=== PATIENT | female | born 2000 | race Caucasian/White ===

== ENCOUNTER 2020-08-10 01:45 | Emergency (ER) | payer OTHER, MEDICAID, SELFPAY ==
[2020-08-10 01:50] VITALS: BP 134/84; PULSE 110; RESP 18; TEMP 36.2; O2SAT 99; BMI 16.2
--- NOTE | 2020-08-10 02:36 | ED.PSYCH ---
HPI - Psych General Chief Complaint: Psychiatric Symptoms Stated Complaint: Thinks she was injected with meth Time Seen by Provider: 08/10/20 01:50 Source: patient and EMS Mode of arrival: Ambulatory Limitations: no limitations History of Present Illness HPI Narrative: 20F smoker presents by EMS stating that she thinks she may have just been injected by methamphetamines at home. She doesn't know where or why, but she wanted to be checked. She is not dizzy, weak, or lightheaded. She had a brief episode of chest pain at some point, but that's gone now. She denies suicidal or homicidal ideation. She is able to care for herself stating she bathes, and cooks. She lives with her mother and boyfriend. complaint: other Onset (ago): minute(s) Duration: constant Exacerbating factors: none Associated psychiatric symptoms: other (paranoid) Associated symptoms: denies other symptoms Treatments prior to arrival: none Review of Systems Constitutional Constitutional: Denies chills, Denies fatigue, Denies fever(s), Denies frequent falls, Denies lethargy and Denies weakness Eyes Eyes: Denies change in vision, Denies eye discharge, Denies irritation and Denies loss of vision ENT Ears, Nose, Mouth, and Throat: Denies change in voice, Denies dizziness, Denies neck pain, Denies sore throat and Denies throat swelling Cardiovascular Cardiovascular: Reports chest pain, Denies irregular heart rhythm, Denies lightheadedness, Denies palpitations, Denies dyspnea, Denies dyspnea on exertion and Denies orthopnea Respiratory Respiratory: Denies cough, Denies dyspnea, Denies dyspnea on exertion and Denies wheezing Gastrointestinal Gastrointestinal: Denies abdominal pain, Denies change in bowel habits, Denies diarrhea, Denies nausea and Denies vomiting Musculoskeletal Musculoskeletal: Denies neck pain and Denies numbness Integumentary/Breasts Skin/Breast: Denies pruritus, Denies erythema, Denies rash and Denies wounds Neurologic Neurologic: Denies behavioral changes, Denies confusion, Denies dizziness, Denies frequent falls, Denies loss of vision, Denies numbness and Denies weakness Psychiatric Psychiatric: Denies anxiety, Denies behavioral changes, Denies confusion, Denies depression, Reports paranoia, Denies homicidal ideation and Denies suicidal ideation Endocrine Endocrine: Denies fatigue, Denies flushing and Denies palpitations Hematologic/Lymphatic Hematologic/Lymphatic: Denies easy bruising Allergic/Immunologic Allergic/Immunologic: Denies urticaria, Denies throat swelling and Denies wheezing Patient History Social History Smoking Status: Current every day smoker Smoking Status: Current every day smoker tobacco type: vaping Substance Use Type: marijuana Exam Narrative Exam Narrative: GENERAL: [20] year old patient appears stated age. Thin, but no temporal wasting or suggestion of malnutrition. Speaking clearly without slurring. HEAD: Atraumatic. Normocephalic. EYES: Pupils equal round and reactive. Extraocular motions intact. No scleral icterus. No injection or drainage. ENT: Nose without bleeding, purulent drainage. Throat without erythema, tonsillar hypertrophy or exudate. Airway patent. NECK: Trachea midline. Non tender CARDIOVASCULAR: Regular rate and rhythm without murmurs, gallops, or rubs. RESPIRATORY: Clear to auscultation. Breath sounds equal bilaterally. No wheezes, rales, or rhonchi. GASTROINTESTINAL: Abdomen soft, non-tender, nondistended. EXTREMITIES: No edema or joint tenderness. BACK: Nontender without deformity or crepitance. No flank tenderness. NEURO: AOx3. SKIN: No rash or erythema of visible areas Initial Vital Signs Initial Vital Signs: Vital Signs Temperature 97.2 F L 08/10/20 01:50 Pulse Rate 110 H 08/10/20 01:50 Respiratory Rate 18 08/10/20 01:50 Blood Pressure 134/84 08/10/20 01:50 Pulse Oximetry 99 08/10/20 01:50 Course Course Course Narrative: patient wanted to walk through the department and when she was encouraged to stay in her room she felt that was unfair and wanted to leave. She refused IV or labs. She is paranoid but speaks clearly without slurring and walks a straight line. She does not demonstrated and risk to herself or others and wants to go home. She refused to sign an AMA. She understands that she may come back at any time. Vital Signs Vital signs: Vital Signs - 8 hr 08/10/20 01:50 Temperature 97.2 F L Pulse Rate 110 H Respiratory Rate 18 Blood Pressure 134/84 Pulse Oximetry 99 Discharge Plan Departure Patient Disposition: Left Against Medical Advice Clinical Impression: Paranoid delusion Activity Restrictions/Additional Instructions: *You have been diagnosed with [ paraoid delusion, perhaps due to elicit drug use. We were unable to evaluate you tonight. Please return at any point if you change your mind and wish to be evaluated ] *What to do: *Take medications as directed *Follow up with your primary care provider in 2-3 days, call for an appointment. Let them know you were seen in the Emergency Department and that we ask that you be seen in follow up *Return to ER if you should have any new, worsening or concerning symptoms Referrals: [facility] [Outside] [facility] [Outside] [facility] [Outside] Stand Alone Forms: Against Medical Advice
--- NOTE | 2020-08-10 02:44 | PC.NURSE ---
Registration in room to obtain consent to treat, patient refused to sign. Patient was very anxious pacing around in room coming out into the hallway when instructed to return/stay in room. She decided to leave AMA and proceeded to walk out of the ambulance bay doors without signing AMA paperwork either. She had her cellphone in hand but left her Vape pen here that we tried to give back to her while outside and she said she did not care about retrieving it.
== END 2020-08-10 02:30 | disposition left against medical advice (07) ==
PROVIDERS: Emergency Provider Emergency Medicine
DX: F22 Delusional disorders (principal)
CPT/HCPCS: 99283

== ENCOUNTER 2020-08-18 09:37 | Emergency (ER) | payer OTHER, MEDICAID, SELFPAY ==
--- NOTE | 2020-08-18 09:51 | ED_ITS ---
HPI - Psych <Caryl Hong, DO - Last Filed: 08/23/20 01:09> General Chief Complaint: Psychiatric Symptoms Stated Complaint: schizoprenia/bipolar issues Time Seen by Provider: 08/18/20 09:39 Source: patient and other (boyfriend) Mode of arrival: Ambulatory Limitations: other (patient not forthcoming) History of Present Illness HPI Narrative: This is a 20-year-old female who has brought by her boyfriend for concern for bipolar or schizophrenia. Boyfriend states that she has had increasing auditory and possibly visual hallucinations. He states that she may have a psychiatric history he states he no she sees counselors in the for 1-2 weeks but nothing regularly. He is unsure if she has ever taken any medications or if she has a formal diagnosis of bipolar schizophrenia. He states he has noticed occasional bizarre behaviors have but in the last month and particularly in the last week she has had increasingly altered behavior. He states she will carry on full coherent conversations with individuals who are not present, he states that when he is present she will shut down she will not talk and she seems to be very unhappy that he is present. He states sometimes she will tasha ear to be holding another individual. He states that she has been brought back to the house by police, he states that she has been found in various neighbor's yards. They currently live together at her mother's home. He states that he does not typically talk with her mother very much because the patient has never wanted them to be, closer have much conversation. He has no the patient since middle school but they have been in a relationship for 1.5 years during that time living together. He states she has never had any threatening or aggressive behavior towards other individuals but she has made statements that she wants to hurt or kill herself. He states that she was here about a week ago which he found out after he was contacted by the police. He states that she uses marijuana but he is unaware of any other drug or illicit use. He states that she has been spending extended period time away sometimes the entire night. When she is home she is sleeping for long periods and it seems excessively. He has not appreciated any other changes such as fevers, difficulty breathing, vom iting, diarrhea or other issues. Patient herself here today does not answer or talk to me. She has given me 1 or 2 words but otherwise does not respond to any questions. He states patient's mother is currently traveling but he did give her contact information for any additional history and he is also happy to talk with anyone such as social work if needed. Related Data Previous Rx's Medication Instructions Recorded cephalexin 500 mg PO BID 5 Days #10 cap 08/19/20 Allergies Allergy/AdvReac Type Severity Reaction Status Date / Time No Allergy Information Allergy Verified 08/19/20 12:24 Available Review of Systems <Caryl Hong DO - Last Filed: 08/23/20 01:09> Review of Systems ROS Unobtainable: Other (unable to obtain, patient does not engage.) Patient History <Caryl Hong DO - Last Filed: 08/23/20 01:09> Social History Smoking Status: Current every day smoker Smoking Status: Current every day smoker tobacco type: vaping Substance Use Type: marijuana Exam <Caryl Hong DO - Last Filed: 08/23/20 01:09> Narrative Exam Narrative: GEN: Thin female a very small stature, alert, patient appears to be in mild to moderate distress. Patient is sitting in bed. She appears withdrawn. Eyes are open but she does not engage with me when I ask questions. She does follow commands she allows us to remove her shirt and closed replace with Hospital gown. HEENT: Atraumatic, pupils are equal round reactive to light, extraocular movements are intact, no nystagmus, nares are clear. HEART: Regular rate and rhythm without murmur, clicks, rubs. No carotid bruits, pulses are equal in upper and lower extremities LUNGS:Lungs clear to auscultation, no wheezes, rales, crackles, chest moves symmetrically ABD:bowel sounds normal, soft, non-tender, no guarding, rebound, rigidity, no masses noted, no hepatosplenomegaly :No CVA tenderness MSCL: Non-tender, no muscle atrophy, full range of motion, normal gait NEURO:CN 2-12 intact, sensation normal SKIN: Patient has many, multiple small areas of excoriation on bilateral lower extremities or the shins and calves. They are not appreciated in the upper extremities, torso. There is only 1 or 2 noted on the face. No erythema, drainage or signs of infection are appreciated. No lesions are noted over veins. PSYCH: Patient does not answer questions. Patient is withdrawn, flat affect. She stares straight ahead. She is cooperative. Unable to obsess further. Patient does speak 1 or 2 sentences when we were changing her clothes and asked us to slow down. Her speech was clear she did not make any other statements. Initial Vital Signs Initial Vital Signs: Vital Signs Temperature 98.7 F 08/18/20 10:15 Pulse Rate 98 H 08/18/20 10:15 Respiratory Rate 18 08/18/20 10:15 Blood Pressure 118/73 08/18/20 10:15 Pulse Oximetry 97 08/18/20 10:15 <Manuel Matute DO - Last Filed: 08/20/20 01:18> Initial Vital Signs Initial Vital Signs: Vital Signs Temperature 98.7 F 08/18/20 10:15 Pulse Rate 98 H 08/18/20 10:15 Respiratory Rate 18 08/18/20 10:15 Blood Pressure 118/73 08/18/20 10:15 Pulse Oximetry 97 08/18/20 10:15 <Karrie Kaur DO - Last Filed: 08/19/20 16:48> Initial Vital Signs Initial Vital Signs: Vital Signs Temperature 98.7 F 08/18/20 10:15 Pulse Rate 98 H 08/18/20 10:15 Respiratory Rate 18 08/18/20 10:15 Blood Pressure 118/73 08/18/20 10:15 Pulse Oximetry 97 08/18/20 10:15 Course <Caryl Hong, DO - Last Filed: 08/23/20 01:09> Orders Ordered: Discontinued Medications Acetaminophen (Acetaminophen 325 Mg Tablet) 975 mg PO NOW ONE Stop: 08/19/20 11:08 Last Admin: 08/19/20 12:14 Dose: 650 mg Documented by: BRIDGETTE Acetaminophen (Acetaminophen 325 Mg Tablet) 975 mg PO NOW ONE Stop: 08/19/20 12:14 Last Admin: 08/19/20 12:15 Dose: Not Given Documented by: BRIDGETTE Cephalexin HCl (Cephalexin 250 Mg Capsule) 500 mg PO NOW ONE Stop: 08/18/20 13:00 Last Admin: 08/18/20 14:46 Dose: Not Given Documented by: BRIDGETTE Cephalexin HCl (Cephalexin 250 Mg Capsule) 500 mg PO NOW ONE Stop: 08/19/20 12:09 Last Admin: 08/19/20 12:11 Dose: 500 mg Documented by: BRIDGETTE Lorazepam (Lorazepam 0.5 Mg Tablet) 1 mg PO NOW ONE Stop: 08/19/20 15:01 Last Admin: 08/19/20 15:04 Dose: 1 mg Documented by: BRIDGETTE Consultations Consultation #1: DCR contacted. patient does not appear acutely intoxicated although she is meth positive today. Labs reflect UTI and abx started orally although patient refused. Medically cleared. Time: 13:09 Vital Signs Vital signs: Vital Signs - 8 hr 08/19/20 11:30 Pulse Rate 83 Respiratory Rate 18 Blood Pressure 96/58 L <Manuel Matute DO - Last Filed: 08/20/20 01:18> Course Course Narrative: patient received from Dr. Hong in signout. Patient resting comfortably. DCR is working on bed placement, but currently no availability. Will Need to keep overnight and consult DESIGN ENGINEERING SPECIALIST tomorrow. Orders Ordered: Discontinued Medications Acetaminophen (Acetaminophen 325 Mg Tablet) 975 mg PO NOW ONE Stop: 08/19/20 11:08 Last Admin: 08/19/20 12:14 Dose: 650 mg Documented by: BRIDGETTE Acetaminophen (Acetaminophen 325 Mg Tablet) 975 mg PO NOW ONE Stop: 08/19/20 12:14 Last Admin: 08/19/20 12:15 Dose: Not Given Documented by: BRIDGETTE Cephalexin HCl (Cephalexin 250 Mg Capsule) 500 mg PO NOW ONE Stop: 08/18/20 13:00 Last Admin: 08/18/20 14:46 Dose: Not Given Documented by: BRIDGETTE Cephalexin HCl (Cephalexin 250 Mg Capsule) 500 mg PO NOW ONE Stop: 08/19/20 12:09 Last Admin: 08/19/20 12:11 Dose: 500 mg Documented by: BRIDGETTE Lorazepam (Lorazepam 0.5 Mg Tablet) 1 mg PO NOW ONE Stop: 08/19/20 15:01 Last Admin: 08/19/20 15:04 Dose: 1 mg Documented by: BRIDGETTE Vital Signs Vital signs: Vital Signs - 8 hr 08/19/20 11:30 Pulse Rate 83 Respiratory Rate 18 Blood Pressure 96/58 L <Karrie Kaur DO - Last Filed: 08/19/20 16:48> Orders Ordered: Discontinued Medications Acetaminophen (Acetaminophen 325 Mg Tablet) 975 mg PO NOW ONE Stop: 08/19/20 11:08 Last Admin: 08/19/20 12:14 Dose: 650 mg Documented by: BRIDGETTE Acetaminophen (Acetaminophen 325 Mg Tablet) 975 mg PO NOW ONE Stop: 08/19/20 12:14 Last Admin: 08/19/20 12:15 Dose: Not Given Documented by: BRIDGETTE Cephalexin HCl (Cephalexin 250 Mg Capsule) 500 mg PO NOW ONE Stop: 08/18/20 13:00 Last Admin: 08/18/20 14:46 Dose: Not Given Documented by: BRIDGETTE Cephalexin HCl (Cephalexin 250 Mg Capsule) 500 mg PO NOW ONE Stop: 08/19/20 12:09 Last Admin: 08/19/20 12:11 Dose: 500 mg Documented by: BRIDGETTE Lorazepam (Lorazepam 0.5 Mg Tablet) 1 mg PO NOW ONE Stop: 08/19/20 15:01 Last Admin: 08/19/20 15:04 Dose: 1 mg Documented by: BRIDGETTE Vital Signs Vital signs: Vital Signs - 8 hr 08/19/20 11:30 Pulse Rate 83 Respiratory Rate 18 Blood Pressure 96/58 L MDM - Psych <Caryl Hong DO - Last Filed: 08/23/20 01:09> Lab Data Result diagrams: 08/18/20 10:25 08/18/20 10:25 Labs: Lab Results 08/18/20 08/18/20 08/18/20 Range/Units 10:25 10:25 10:25 WBC 6.6 (4.5-11.0) X10^3/uL RBC 4.34 (4.0-5.2) X10^6/uL Hgb 13.8 (12.0-16.0) g/dL Hct 39.8 (36-46) % MCV 91.7 (80-100) fL MCH 31.9 (26-34) PG MCHC 34.8 (30-36) % RDW 12.9 (11.6-14.8) % Plt Count 245 (150-400) X10^3/uL Neut % (Auto) 73.8 (50-75) % Lymph % (Auto) 17.8 L (25-40) % [place] % (Auto) 7.4 (3-14) % Eos % (Auto) 0.2 L (2-4) % Baso % (Auto) 0.8 (0-2) % Neut # (Auto) 4900 (3054-0969) /uL Lymph # (Auto) 1200 (2493-7771) /uL [place] # (Auto) 500 (0-900) /uL Eos # (Auto) 0 (0-450) /uL Baso # (Auto) 100 (0-100) /uL Sodium 138 (137-145) mmol/L Potassium 3.8 (3.4-5.1) mmol/L Chloride 100 (98-107) mmol/L Carbon Dioxide 26 (22-32) mmol/L BUN 22 H (7-17) mg/dL Creatinine 0.64 (0.52-1.04) mg/dL Estimated GFR > 60.0 (>60) mL/min BUN/Creatinine Ratio 34.4 H (6-22) Glucose 128 H (70-100) mg/dL Calcium 10.0 (8.4-10.2) mg/dL Total Bilirubin 0.7 (0.2-1.3) mg/dL AST 23 (14-36) IU/L ALT 18 (<35) IU/L Alkaline Phosphatase 67 (38-126) U/L Total Protein 8.3 H (6.3-8.2) g/dL Albumin 4.9 (3.5-5.0) g/dL Globulin 3.4 (1.7-4.1) g/dL Albumin/Globulin Ratio 1.4 (1.0-2.8) TSH 0.346 L (0.47-4.68) uIU/mL Serum , Qual (Negative) Urine RBC (0-5/HPF) Urine WBC (0-5/HPF) Ur Squamous Epith Cells (0-5/HPF) Urine Bacteria (None) Ur Culture Indicated? Salicylates < 1.0 (<20) mg/dL U Opiates 300ng/mL cut (Negative) Ur Oxycodone Screen (Negative) Urine Methadone Screen (Negative) Acetaminophen < 10 L (10-30) ug/mL Ur Barbiturates Screen (Negative) U Tricyclic Antidepress (Negative) Ur Phencyclidine Scrn (Negative) Ur Amphetamines Screen (Negative) U Methamphetamines Scrn (Negative) Ur MDMA Scrn (Ecstasy) (Negative) U Benzodiazepines Scrn (Negative) [place] (0.6-1.2) mmol/L Urine Cocaine Screen (Negative) U Marijuana (THC) Screen (Negative) Ethyl Alcohol < 10 ( - 10) mg/dL SARS-CoV-2 (PCR) (Negative) 08/18/20 08/18/20 08/18/20 Range/Units 10:25 10:25 10:35 WBC (4.5-11.0) X10^3/uL RBC (4.0-5.2) X10^6/uL Hgb (12.0-16.0) g/dL Hct (36-46) % MCV (80-100) fL MCH (26-34) PG MCHC (30-36) % RDW (11.6-14.8) % Plt Count (150-400) X10^3/uL Neut % (Auto) (50-75) % Lymph % (Auto) (25-40) % [place] % (Auto) (3-14) % Eos % (Auto) (2-4) % Baso % (Auto) (0-2) % Neut # (Auto) (2103-7662) /uL Lymph # (Auto) (2227-9917) /uL [place] # (Auto) (0-900) /uL Eos # (Auto) (0-450) /uL Baso # (Auto) (0-100) /uL Sodium (137-145) mmol/L Potassium (3.4-5.1) mmol/L Chloride (98-107) mmol/L Carbon Dioxide (22-32) mmol/L BUN (7-17) mg/dL Creatinine (0.52-1.04) mg/dL Estimated GFR (>60) mL/min BUN/Creatinine Ratio (6-22) Glucose (70-100) mg/dL Calcium (8.4-10.2) mg/dL Total Bilirubin (0.2-1.3) mg/dL AST (14-36) IU/L ALT (<35) IU/L Alkaline Phosphatase (38-126) U/L Total Protein (6.3-8.2) g/dL Albumin (3.5-5.0) g/dL Globulin (1.7-4.1) g/dL Albumin/Globulin Ratio (1.0-2.8) TSH (0.47-4.68) uIU/mL Serum , Qual Negative (Negative) Urine RBC (0-5/HPF) Urine WBC (0-5/HPF) Ur Squamous Epith Cells (0-5/HPF) Urine Bacteria (None) Ur Culture Indicated? Salicylates (<20) mg/dL U Opiates 300ng/mL cut (Negative) Ur Oxycodone Screen (Negative) Urine Methadone Screen (Negative) Acetaminophen (10-30) ug/mL Ur Barbiturates Screen (Negative) U Tricyclic Antidepress (Negative) Ur Phencyclidine Scrn (Negative) Ur Amphetamines Screen (Negative) U Methamphetamines Scrn (Negative) Ur MDMA Scrn (Ecstasy) (Negative) U Benzodiazepines Scrn (Negative) [place] < 0.2 L (0.6-1.2) mmol/L Urine Cocaine Screen (Negative) U Marijuana (THC) Screen (Negative) Ethyl Alcohol ( - 10) mg/dL SARS-CoV-2 (PCR) Negative (Negative) 08/18/20 08/18/20 Range/Units 11:45 11:45 WBC (4.5-11.0) X10^3/uL RBC (4.0-5.2) X10^6/uL Hgb (12.0-16.0) g/dL Hct (36-46) % MCV (80-100) fL MCH (26-34) PG MCHC (30-36) % RDW (11.6-14.8) % Plt Count (150-400) X10^3/uL Neut % (Auto) (50-75) % Lymph % (Auto) (25-40) % [place] % (Auto) (3-14) % Eos % (Auto) (2-4) % Baso % (Auto) (0-2) % Neut # (Auto) (0144-2320) /uL Lymph # (Auto) (3989-4305) /uL [place] # (Auto) (0-900) /uL Eos # (Auto) (0-450) /uL Baso # (Auto) (0-100) /uL Sodium (137-145) mmol/L Potassium (3.4-5.1) mmol/L Chloride (98-107) mmol/L Carbon Dioxide (22-32) mmol/L BUN (7-17) mg/dL Creatinine (0.52-1.04) mg/dL Estimated GFR (>60) mL/min BUN/Creatinine Ratio (6-22) Glucose (70-100) mg/dL Calcium (8.4-10.2) mg/dL Total Bilirubin (0.2-1.3) mg/dL AST (14-36) IU/L ALT (<35) IU/L Alkaline Phosphatase (38-126) U/L Total Protein (6.3-8.2) g/dL Albumin (3.5-5.0) g/dL Globulin (1.7-4.1) g/dL Albumin/Globulin Ratio (1.0-2.8) TSH (0.47-4.68) uIU/mL Serum , Qual (Negative) Urine RBC 1-5/hpf (0-5/HPF) Urine WBC 1-5/hpf (0-5/HPF) Ur Squamous Epith Cells 0-1 /hpf (0-5/HPF) Urine Bacteria Many (>30) H (None) Ur Culture Indicated? Specimen cultured Salicylates (<20) mg/dL U Opiates 300ng/mL cut Negative (Negative) Ur Oxycodone Screen Negative (Negative) Urine Methadone Screen Negative (Negative) Acetaminophen (10-30) ug/mL Ur Barbiturates Screen Negative (Negative) U Tricyclic Antidepress Negative (Negative) Ur Phencyclidine Scrn Negative (Negative) Ur Amphetamines Screen Positive H (Negative) U Methamphetamines Scrn Positive H (Negative) Ur MDMA Scrn (Ecstasy) Negative (Negative) U Benzodiazepines Scrn Negative (Negative) [place] (0.6-1.2) mmol/L Urine Cocaine Screen Negative (Negative) U Marijuana (THC) Screen Positive H (Negative) Ethyl Alcohol ( - 10) mg/dL SARS-CoV-2 (PCR) (Negative) Urine Dip Bedside Urine Glucose Negative Bedside Urine Bilirubin - Negative Bedside Urine Ketone ++ 40 Urine Specific [place] 1.030 Bedside Urine Occult Blood +++ Bedside Urine pH 6.0 Bedside Urine Protein +/- 15 Bedside Urine Urobilinogen - Negative Bedside Urine Nitrite + Positive Bedside Urine Leukocytes - Negative Esterase MDM Narrative Medical decision making narrative: This is a 20-year-old female brought in by her boyfriend for concern for schizophrenia or bipolar with increasing bizarre activity. Unclear if she has had any methamphetamine use or other drug use. Boyfriend is unaware of any besides marijuana. She patient does have 1 prior visit 8 days ago. Patient was present with complaint that she believed she was injected with methamphetamines, patient that time was not felt to be gravely disabled and written left against medical advice. Patient was seen by DESIGN ENGINEERING SPECIALIST here at [facility]. She is positive for methamphetamines but does not appear acute intoxicated on exam. She is very withdrawn and does not answer questions for me. Labs show UTI but otherwise medically cleared. DESIGN ENGINEERING SPECIALIST asks if we can contact DCR for possible evaluation. Patient has made suicidal statements recently to boyfriend. DCR is detaining the patient. Patient attempted to leave. She was eventually escorted back to room by security and law enforcement. Patient was never physically aggressive with staff but does not wish to be here. She also does not directly answer questions. <Manuel Matute, DO - Last Filed: 08/20/20 01:18> Lab Data Labs: Lab Results 08/18/20 08/18/20 08/18/20 Range/Units 10:25 10:25 10:25 WBC 6.6 (4.5-11.0) X10^3/uL RBC 4.34 (4.0-5.2) X10^6/uL Hgb 13.8 (12.0-16.0) g/dL Hct 39.8 (36-46) % MCV 91.7 (80-100) fL MCH 31.9 (26-34) PG MCHC 34.8 (30-36) % RDW 12.9 (11.6-14.8) % Plt Count 245 (150-400) X10^3/uL Neut % (Auto) 73.8 (50-75) % Lymph % (Auto) 17.8 L (25-40) % [place] % (Auto) 7.4 (3-14) % Eos % (Auto) 0.2 L (2-4) % Baso % (Auto) 0.8 (0-2) % Neut # (Auto) 4900 (2017-5225) /uL Lymph # (Auto) 1200 (2198-1761) /uL [place] # (Auto) 500 (0-900) /uL Eos # (Auto) 0 (0-450) /uL Baso # (Auto) 100 (0-100) /uL Sodium 138 (137-145) mmol/L Potassium 3.8 (3.4-5.1) mmol/L Chloride 100 (98-107) mmol/L Carbon Dioxide 26 (22-32) mmol/L BUN 22 H (7-17) mg/dL Creatinine 0.64 (0.52-1.04) mg/dL Estimated GFR > 60.0 (>60) mL/min BUN/Creatinine Ratio 34.4 H (6-22) Glucose 128 H (70-100) mg/dL Calcium 10.0 (8.4-10.2) mg/dL Total Bilirubin 0.7 (0.2-1.3) mg/dL AST 23 (14-36) IU/L ALT 18 (<35) IU/L Alkaline Phosphatase 67 (38-126) U/L Total Protein 8.3 H (6.3-8.2) g/dL Albumin 4.9 (3.5-5.0) g/dL Globulin 3.4 (1.7-4.1) g/dL Albumin/Globulin Ratio 1.4 (1.0-2.8) TSH 0.346 L (0.47-4.68) uIU/mL Serum , Qual (Negative) Urine RBC (0-5/HPF) Urine WBC (0-5/HPF) Ur Squamous Epith Cells (0-5/HPF) Urine Bacteria (None) Ur Culture Indicated? Salicylates < 1.0 (<20) mg/dL U Opiates 300ng/mL cut (Negative) Ur Oxycodone Screen (Negative) Urine Methadone Screen (Negative) Acetaminophen < 10 L (10-30) ug/mL Ur Barbiturates Screen (Negative) U Tricyclic Antidepress (Negative) Ur Phencyclidine Scrn (Negative) Ur Amphetamines Screen (Negative) U Methamphetamines Scrn (Negative) Ur MDMA Scrn (Ecstasy) (Negative) U Benzodiazepines Scrn (Negative) [place] (0.6-1.2) mmol/L Urine Cocaine Screen (Negative) U Marijuana (THC) Screen (Negative) Ethyl Alcohol < 10 ( - 10) mg/dL SARS-CoV-2 (PCR) (Negative) 08/18/20 08/18/20 08/18/20 Range/Units 10:25 10:25 10:35 WBC (4.5-11.0) X10^3/uL RBC (4.0-5.2) X10^6/uL Hgb (12.0-16.0) g/dL Hct (36-46) % MCV (80-100) fL MCH (26-34) PG MCHC (30-36) % RDW (11.6-14.8) % Plt Count (150-400) X10^3/uL Neut % (Auto) (50-75) % Lymph % (Auto) (25-40) % [place] % (Auto) (3-14) % Eos % (Auto) (2-4) % Baso % (Auto) (0-2) % Neut # (Auto) (7468-0249) /uL Lymph # (Auto) (7233-0278) /uL [place] # (Auto) (0-900) /uL Eos # (Auto) (0-450) /uL Baso # (Auto) (0-100) /uL Sodium (137-145) mmol/L Potassium (3.4-5.1) mmol/L Chloride (98-107) mmol/L Carbon Dioxide (22-32) mmol/L BUN (7-17) mg/dL Creatinine (0.52-1.04) mg/dL Estimated GFR (>60) mL/min BUN/Creatinine Ratio (6-22) Glucose (70-100) mg/dL Calcium (8.4-10.2) mg/dL Total Bilirubin (0.2-1.3) mg/dL AST (14-36) IU/L ALT (<35) IU/L Alkaline Phosphatase (38-126) U/L Total Protein (6.3-8.2) g/dL Albumin (3.5-5.0) g/dL Globulin (1.7-4.1) g/dL Albumin/Globulin Ratio (1.0-2.8) TSH (0.47-4.68) uIU/mL Serum , Qual Negative (Negative) Urine RBC (0-5/HPF) Urine WBC (0-5/HPF) Ur Squamous Epith Cells (0-5/HPF) Urine Bacteria (None) Ur Culture Indicated? Salicylates (<20) mg/dL U Opiates 300ng/mL cut (Negative) Ur Oxycodone Screen (Negative) Urine Methadone Screen (Negative) Acetaminophen (10-30) ug/mL Ur Barbiturates Screen (Negative) U Tricyclic Antidepress (Negative) Ur Phencyclidine Scrn (Negative) Ur Amphetamines Screen (Negative) U Methamphetamines Scrn (Negative) Ur MDMA Scrn (Ecstasy) (Negative) U Benzodiazepines Scrn (Negative) [place] < 0.2 L (0.6-1.2) mmol/L Urine Cocaine Screen (Negative) U Marijuana (THC) Screen (Negative) Ethyl Alcohol ( - 10) mg/dL SARS-CoV-2 (PCR) Negative (Negative) 08/18/20 08/18/20 Range/Units 11:45 11:45 WBC (4.5-11.0) X10^3/uL RBC (4.0-5.2) X10^6/uL Hgb (12.0-16.0) g/dL Hct (36-46) % MCV (80-100) fL MCH (26-34) PG MCHC (30-36) % RDW (11.6-14.8) % Plt Count (150-400) X10^3/uL Neut % (Auto) (50-75) % Lymph % (Auto) (25-40) % [place] % (Auto) (3-14) % Eos % (Auto) (2-4) % Baso % (Auto) (0-2) % Neut # (Auto) (2151-0072) /uL Lymph # (Auto) (8624-5741) /uL [place] # (Auto) (0-900) /uL Eos # (Auto) (0-450) /uL Baso # (Auto) (0-100) /uL Sodium (137-145) mmol/L Potassium (3.4-5.1) mmol/L Chloride (98-107) mmol/L Carbon Dioxide (22-32) mmol/L BUN (7-17) mg/dL Creatinine (0.52-1.04) mg/dL Estimated GFR (>60) mL/min BUN/Creatinine Ratio (6-22) Glucose (70-100) mg/dL Calcium (8.4-10.2) mg/dL Total Bilirubin (0.2-1.3) mg/dL AST (14-36) IU/L ALT (<35) IU/L Alkaline Phosphatase (38-126) U/L Total Protein (6.3-8.2) g/dL Albumin (3.5-5.0) g/dL Globulin (1.7-4.1) g/dL Albumin/Globulin Ratio (1.0-2.8) TSH (0.47-4.68) uIU/mL Serum , Qual (Negative) Urine RBC 1-5/hpf (0-5/HPF) Urine WBC 1-5/hpf (0-5/HPF) Ur Squamous Epith Cells 0-1 /hpf (0-5/HPF) Urine Bacteria Many (>30) H (None) Ur Culture Indicated? Specimen cultured Salicylates (<20) mg/dL U Opiates 300ng/mL cut Negative (Negative) Ur Oxycodone Screen Negative (Negative) Urine Methadone Screen Negative (Negative) Acetaminophen (10-30) ug/mL Ur Barbiturates Screen Negative (Negative) U Tricyclic Antidepress Negative (Negative) Ur Phencyclidine Scrn Negative (Negative) Ur Amphetamines Screen Positive H (Negative) U Methamphetamines Scrn Positive H (Negative) Ur MDMA Scrn (Ecstasy) Negative (Negative) U Benzodiazepines Scrn Negative (Negative) [place] (0.6-1.2) mmol/L Urine Cocaine Screen Negative (Negative) U Marijuana (THC) Screen Positive H (Negative) Ethyl Alcohol ( - 10) mg/dL SARS-CoV-2 (PCR) (Negative) Urine Dip Bedside Urine Glucose Negative Bedside Urine Bilirubin - Negative Bedside Urine Ketone ++ 40 Urine Specific [place] 1.030 Bedside Urine Occult Blood +++ Bedside Urine pH 6.0 Bedside Urine Protein +/- 15 Bedside Urine Urobilinogen - Negative Bedside Urine Nitrite + Positive Bedside Urine Leukocytes - Negative Esterase <Karrie Kaur DO - Last Filed: 08/19/20 16:48> Lab Data Labs: Lab Results 08/18/20 08/18/20 08/18/20 Range/Units 10:25 10:25 10:25 WBC 6.6 (4.5-11.0) X10^3/uL RBC 4.34 (4.0-5.2) X10^6/uL Hgb 13.8 (12.0-16.0) g/dL Hct 39.8 (36-46) % MCV 91.7 (80-100) fL MCH 31.9 (26-34) PG MCHC 34.8 (30-36) % RDW 12.9 (11.6-14.8) % Plt Count 245 (150-400) X10^3/uL Neut % (Auto) 73.8 (50-75) % Lymph % (Auto) 17.8 L (25-40) % [place] % (Auto) 7.4 (3-14) % Eos % (Auto) 0.2 L (2-4) % Baso % (Auto) 0.8 (0-2) % Neut # (Auto) 4900 (6013-2613) /uL Lymph # (Auto) 1200 (0265-7279) /uL [place] # (Auto) 500 (0-900) /uL Eos # (Auto) 0 (0-450) /uL Baso # (Auto) 100 (0-100) /uL Sodium 138 (137-145) mmol/L Potassium 3.8 (3.4-5.1) mmol/L Chloride 100 (98-107) mmol/L Carbon Dioxide 26 (22-32) mmol/L BUN 22 H (7-17) mg/dL Creatinine 0.64 (0.52-1.04) mg/dL Estimated GFR > 60.0 (>60) mL/min BUN/Creatinine Ratio 34.4 H (6-22) Glucose 128 H (70-100) mg/dL Calcium 10.0 (8.4-10.2) mg/dL Total Bilirubin 0.7 (0.2-1.3) mg/dL AST 23 (14-36) IU/L ALT 18 (<35) IU/L Alkaline Phosphatase 67 (38-126) U/L Total Protein 8.3 H (6.3-8.2) g/dL Albumin 4.9 (3.5-5.0) g/dL Globulin 3.4 (1.7-4.1) g/dL Albumin/Globulin Ratio 1.4 (1.0-2.8) TSH 0.346 L (0.47-4.68) uIU/mL Serum , Qual (Negative) Urine RBC (0-5/HPF) Urine WBC (0-5/HPF) Ur Squamous Epith Cells (0-5/HPF) Urine Bacteria (None) Ur Culture Indicated? Salicylates < 1.0 (<20) mg/dL U Opiates 300ng/mL cut (Negative) Ur Oxycodone Screen (Negative) Urine Methadone Screen (Negative) Acetaminophen < 10 L (10-30) ug/mL Ur Barbiturates Screen (Negative) U Tricyclic Antidepress (Negative) Ur Phencyclidine Scrn (Negative) Ur Amphetamines Screen (Negative) U Methamphetamines Scrn (Negative) Ur MDMA Scrn (Ecstasy) (Negative) U Benzodiazepines Scrn (Negative) [place] (0.6-1.2) mmol/L Urine Cocaine Screen (Negative) U Marijuana (THC) Screen (Negative) Ethyl Alcohol < 10 ( - 10) mg/dL SARS-CoV-2 (PCR) (Negative) 08/18/20 08/18/20 08/18/20 Range/Units 10:25 10:25 10:35 WBC (4.5-11.0) X10^3/uL RBC (4.0-5.2) X10^6/uL Hgb (12.0-16.0) g/dL Hct (36-46) % MCV (80-100) fL MCH (26-34) PG MCHC (30-36) % RDW (11.6-14.8) % Plt Count (150-400) X10^3/uL Neut % (Auto) (50-75) % Lymph % (Auto) (25-40) % [place] % (Auto) (3-14) % Eos % (Auto) (2-4) % Baso % (Auto) (0-2) % Neut # (Auto) (6692-8655) /uL Lymph # (Auto) (1178-2803) /uL [place] # (Auto) (0-900) /uL Eos # (Auto) (0-450) /uL Baso # (Auto) (0-100) /uL Sodium (137-145) mmol/L Potassium (3.4-5.1) mmol/L Chloride (98-107) mmol/L Carbon Dioxide (22-32) mmol/L BUN (7-17) mg/dL Creatinine (0.52-1.04) mg/dL Estimated GFR (>60) mL/min BUN/Creatinine Ratio (6-22) Glucose (70-100) mg/dL Calcium (8.4-10.2) mg/dL Total Bilirubin (0.2-1.3) mg/dL AST (14-36) IU/L ALT (<35) IU/L Alkaline Phosphatase (38-126) U/L Total Protein (6.3-8.2) g/dL Albumin (3.5-5.0) g/dL Globulin (1.7-4.1) g/dL Albumin/Globulin Ratio (1.0-2.8) TSH (0.47-4.68) uIU/mL Serum , Qual Negative (Negative) Urine RBC (0-5/HPF) Urine WBC (0-5/HPF) Ur Squamous Epith Cells (0-5/HPF) Urine Bacteria (None) Ur Culture Indicated? Salicylates (<20) mg/dL U Opiates 300ng/mL cut (Negative) Ur Oxycodone Screen (Negative) Urine Methadone Screen (Negative) Acetaminophen (10-30) ug/mL Ur Barbiturates Screen (Negative) U Tricyclic Antidepress (Negative) Ur Phencyclidine Scrn (Negative) Ur Amphetamines Screen (Negative) U Methamphetamines Scrn (Negative) Ur MDMA Scrn (Ecstasy) (Negative) U Benzodiazepines Scrn (Negative) [place] < 0.2 L (0.6-1.2) mmol/L Urine Cocaine Screen (Negative) U Marijuana (THC) Screen (Negative) Ethyl Alcohol ( - 10) mg/dL SARS-CoV-2 (PCR) Negative (Negative) 08/18/20 08/18/20 Range/Units 11:45 11:45 WBC (4.5-11.0) X10^3/uL RBC (4.0-5.2) X10^6/uL Hgb (12.0-16.0) g/dL Hct (36-46) % MCV (80-100) fL MCH (26-34) PG MCHC (30-36) % RDW (11.6-14.8) % Plt Count (150-400) X10^3/uL Neut % (Auto) (50-75) % Lymph % (Auto) (25-40) % [place] % (Auto) (3-14) % Eos % (Auto) (2-4) % Baso % (Auto) (0-2) % Neut # (Auto) (4974-5097) /uL Lymph # (Auto) (4517-9422) /uL [place] # (Auto) (0-900) /uL Eos # (Auto) (0-450) /uL Baso # (Auto) (0-100) /uL Sodium (137-145) mmol/L Potassium (3.4-5.1) mmol/L Chloride (98-107) mmol/L Carbon Dioxide (22-32) mmol/L BUN (7-17) mg/dL Creatinine (0.52-1.04) mg/dL Estimated GFR (>60) mL/min BUN/Creatinine Ratio (6-22) Glucose (70-100) mg/dL Calcium (8.4-10.2) mg/dL Total Bilirubin (0.2-1.3) mg/dL AST (14-36) IU/L ALT (<35) IU/L Alkaline Phosphatase (38-126) U/L Total Protein (6.3-8.2) g/dL Albumin (3.5-5.0) g/dL Globulin (1.7-4.1) g/dL Albumin/Globulin Ratio (1.0-2.8) TSH (0.47-4.68) uIU/mL Serum , Qual (Negative) Urine RBC 1-5/hpf (0-5/HPF) Urine WBC 1-5/hpf (0-5/HPF) Ur Squamous Epith Cells 0-1 /hpf (0-5/HPF) Urine Bacteria Many (>30) H (None) Ur Culture Indicated? Specimen cultured Salicylates (<20) mg/dL U Opiates 300ng/mL cut Negative (Negative) Ur Oxycodone Screen Negative (Negative) Urine Methadone Screen Negative (Negative) Acetaminophen (10-30) ug/mL Ur Barbiturates Screen Negative (Negative) U Tricyclic Antidepress Negative (Negative) Ur Phencyclidine Scrn Negative (Negative) Ur Amphetamines Screen Positive H (Negative) U Methamphetamines Scrn Positive H (Negative) Ur MDMA Scrn (Ecstasy) Negative (Negative) U Benzodiazepines Scrn Negative (Negative) Hymera (0.6-1.2) mmol/L Urine Cocaine Screen Negative (Negative) U Marijuana (THC) Screen Positive H (Negative) Ethyl Alcohol ( - 10) mg/dL SARS-CoV-2 (PCR) (Negative) Urine Dip Bedside Urine Glucose Negative Bedside Urine Bilirubin - Negative Bedside Urine Ketone ++ 40 Urine Specific [place] 1.030 Bedside Urine Occult Blood +++ Bedside Urine pH 6.0 Bedside Urine Protein +/- 15 Bedside Urine Urobilinogen - Negative Bedside Urine Nitrite + Positive Bedside Urine Leukocytes - Negative Esterase MDM Narrative Medical decision making narrative: Received sign-out from Dr. Matute. Patient has been cooperative restraints have been is stopped at 8:30 a.m. she continues to have a sitter and door open. They will be immediately placed if she tries to elope again. DCR walked away and 11:00 p.m. due to unable to place they cannot be read dispatcher 24 hours. Patient is currently sleeping I woke her she is not engaging in conversation is willing to have vitals taken. Social work found bed at [facility]. She remains involuntary. She does have UTI, gram-negative bacteria she initially refused her Keflex yesterday but has taken it today. I have provided her a script for Keflex upon discharge. Restraint Xisb-xy-Lshs <Caryl Hong DO - Last Filed: 08/23/20 01:09> Restraint Mlrc-fy-Ruzo Evaluation Itoy-me-Ifaa #1: Date: 08/18/20 Time: 16:30 Discharge Plan Departure Patient Disposition: Xfer Psychiatric Hosp Clinical Impression: UTI (urinary tract infection), Suicidal ideations Activity Restrictions/Additional Instructions: You are going to [facility] Take Keflex 500 mg twice a day for 5 days for UTI ED Sign-out <Caryl Hong DO - Last Filed: 08/23/20 01:09> Sign Out Provider Sign Out Attestation: Patient Sign Out occurred on 08/18/20 at 1836 . Patient's care was discussed, and care was transferred from Dr. Hong to Dr. Matute while awaiting possible placement.
[2020-08-18 10:15] VITALS: BP 118/73; PULSE 98; RESP 18; TEMP 37.1; O2SAT 97
[2020-08-18 10:41] LABS: Add Manual Diff / Slide Review NO; Basophils Absolute Auto 100 /uL (0-100); Basophils Percent Auto 0.8 % (0-2); Eosinophils Absolute Auto 0 /uL (0-450); Eosinophils Percent Auto 0.2 % (2-4); Hematocrit 39.8 % (36-46); Hemoglobin 13.8 g/dL (12.0-16.0); Lymphocytes Absolute Auto 1200 /uL (1100-4500); Lymphocytes Percent Auto 17.8 % (25-40); Mean Corpuscular HGB Conc 34.8 % (30-36); Mean Corpuscular Hemoglobin 31.9 PG (26-34); Mean Corpuscular Volume 91.7 fL (80-100); Monocytes Absolute Auto 500 /uL (0-900); Monocytes Percent Auto 7.4 % (3-14); Neutrophils Absolute Auto 4900 /uL (1500-7000); Neutrophils Percent Auto 73.8 % (50-75); Platelet Count 245 X10^3/uL (150-400); Red Blood Cell Count 4.34 X10^6/uL (4.0-5.2); Red Cell Distribution Width 12.9 % (11.6-14.8); White Blood Cell Count 6.6 X10^3/uL (4.5-11.0)
[2020-08-18 10:48] LABS: Pregnancy Test Serum,Qual Negative (Negative)
[2020-08-18 10:50] LABS: Acetaminophen < 10 ug/mL (10-30); Alanine Aminotransferase 18 IU/L (<35); Albumin 4.9 g/dL (3.5-5.0); Albumin Globulin Ratio 1.4 (1.0-2.8); Alkaline Phosphatase 67 U/L (38-126); Aspartate Aminotransferase 23 IU/L (14-36); BUN Creatinine Ratio 34.4 (6-22); Bilirubin Total 0.7 mg/dL (0.2-1.3); Blood Urea Nitrogen 22 mg/dL (7-17); Carbon Dioxide 26 mmol/L (22-32); Chloride 100 mmol/L (98-107); Estimated Glomerular Filt Rate > 60.0 mL/min (>60); Ethanol (ETOH) < 10 mg/dL; Globulin 3.4 g/dL (1.7-4.1); Glucose 128 mg/dL (70-100); HEMOLYSIS < 15 (0-50); Potassium 3.8 mmol/L (3.4-5.1); Salicylate < 1.0 mg/dL (<20); Sodium 138 mmol/L (137-145); Total Protein 8.3 g/dL (6.3-8.2)
[2020-08-18 10:56] LABS: COVID19 -Nasal RAPID Negative (Negative)
[2020-08-18 11:23] LABS: Thyroid Stimulating Hormone 0.346 uIU/mL (0.47-4.68)
[2020-08-18 12:02] LABS: UR Morphine/Opiate cutoff 300 Negative (Negative); Ur Creatinine Normal (Normal); Ur Specific Gravity Normal (Normal); Urine Amphetamines Positive (Negative); Urine Barbiturates Negative (Negative); Urine Benzodiazepines Negative (Negative); Urine Cocaine Negative (Negative); Urine MDMA Negative (Negative); Urine Methadone Negative (Negative); Urine Methamphetamines Positive (Negative); Urine Oxycodone Negative (Negative); Urine Phencyclidine Negative (Negative); Urine Tetrahydrocannabinol Positive (Negative); Urine Tricyclic Antidepressant Negative (Negative); Urine pH Normal (Normal)
[2020-08-18 12:04] LABS: Bacteria Urine Many (>30); Culture Indicated Urine Specimen Cultured; RBC Urine 1-5/HPF (0-5/HPF); Squamous Epithelial Cell Urine 0-1 /HPF (0-5/HPF); WBC Urine 1-5/HPF (0-5/HPF)
[2020-08-18 12:18] VITALS: TEMP 36.6
[2020-08-18 13:49] VITALS: BP 108/65; PULSE 93; RESP 16; TEMP 37.2; O2SAT 100
--- NOTE | 2020-08-18 14:05 | PC.NURSE ---
Patient appears to be confused as to how long shes been here and what day it is. She is having delayed responses but is verbalizing stomach discomfort and a migraine. She was offered her antibiotic but in neither welcoming them or denying them. She is pushing the pills around in her apple sauce. She appears to be searching while staring at the bed. She avoids eye contact and has short responses. She states that she feels like she is bleeding and when asked where she says she doesn't know and can't see but makes a motion like she is referring to menstruation.
--- NOTE | 2020-08-18 14:41 | PC.NURSE ---
patient's bf came into the ED and stated that the patient has been saying for the last year that she was but has not had a test. He said she did begin to show signs of it but a couple of weeks ago she gradually began to have more severe hallucinations. He speculates that she had a miscarriage because she has been bleeding off and on.
--- NOTE | 2020-08-18 14:46 | PC.NURSE ---
1415-Pt's boyfriend is in the room, visiting with pt. Pt appears calm, more talkative with boyfriend around but still quiet.
--- NOTE | 2020-08-18 15:04 | PC.NURSE ---
1500-Pt's boyfriend just left. WIll be by later.
--- NOTE | 2020-08-18 15:50 | PC.NURSE ---
DCR called and stated that the patient is not in the mood to talk right now. She told him that the door was locked and closed and was not able to hand the tablet back. The door has remained open and unlocked the entire time.
--- NOTE | 2020-08-18 16:10 | CM.DANOTE ---
DCP ASSESSMENT: Patient is a 20 year-old female presenting in the ER for concerns for schizophrenia and bipolar with an increase in bizarre behavior per boyfriend who dropped her off at the ER. She tested positive for amphetamines, methamphetamines and marijuana. Patient also positive for a UTI. She was in the ER 8 days ago 08/10/20 with complaints that she thought she was injected with methamphetamines. She left hospital AMA and refused IV or labs. SAND CONDITIONER MACHINE educated patient on role of social work in D/C planning. Patient presented with a flat affect, and appeared to be attending to internal stimuli. Patient interview was limited in nature due to selective limited verbal responses from patient. Non-verbal information was also limited, lack of eye contact and diminished gestures. Her limited speaking was soft and latent in nature with the majority of communication being one word answers. But, did make an insightful goal directed comment when she was disrobing to the effect of it being inappropriate however, she was very hot. Encouraged her to stay covered with sheet for privacy. Given encouragement she was able to follow simple directions. Multiple leg wounds in various stages of healing, she has appears to be malnourished and very thin for height and age. Patient appearance is that she is not tending to ADL?s as evidence by being disheveled with greasy hair. Precipitating events per boyfriend are more from a psychological background, however there are additional factors: positive drug screen and UTI. Substance use history self and family where unable to obtain information at this time. Past psychiatric history and behavioral health: Per chart review patient boyfriend had reported she has seen a behavioral health provide one or two times? Unable to obtain information at this time. Support systems: per chart review boyfriend reports to staff at time of intake she lives with him and her mother. However, unable to clarify or obtain information at this time. Mental Status: Orientation: unclear due to lack of response, Affect flat with distant stare. Speech: Slow and soft, Motor: Slow Insight: Impaired Judgment: Impaired Impulse Control: impaired Memory: Unable to asses Concentration: Unable to asses Attention: Impaired Behavior: Impaired: Distracted appeared to be attending to internal stimuli, distracted. Suicidal / Homicidal ideations: Unable to obtain information. There was no response when questions were asked: a blank stare and silence. PLAN: SAND CONDITIONER MACHINE recommended the provider call a DCR for further assessment if needed as there is not enough information to establish a safe D/C plan at this time. Provider Dr. Hong plans to wait patient mentally clears from substances prior to calling DCR. SAND CONDITIONER MACHINE will follow-up on 08/19/20 if patient remains in ED.
--- NOTE | 2020-08-18 16:41 | PC.NURSE ---
patient tried to leave and the provider was notified along with security. She stated that she was not wanting to stay and is ready to leave. She refused to go back to her room and law enforcement had to be called. JOSÉ LUIS arrived as she was going to her room. all items were removed from her room and she was given a matress to sleep on
[2020-08-18 17:25] LABS: Lithium < 0.2 mmol/L (0.6-1.2)
[2020-08-18 17:40] VITALS: BP 112/66; PULSE 97; RESP 15; TEMP 36.6
[2020-08-18 21:00] VITALS: BP 106/59; PULSE 74; RESP 16; TEMP 36.5; O2SAT 100
--- NOTE | 2020-08-18 22:06 | PC.NURSE ---
Gave pt chocolate pudding or apple sauce. pt boyfriend asked if he could leave his hat with pt as a comfort to her I checked out the hat, it was free of anything that could be used as a weapon and had nothing hidden in it. He also requested that the pt be able to get ahold of him. I informed him that if the pt is calm and fallowing directions and not trying to leave we could facilitate a phone call. He stated that he may be able to calm her if she is agitated.I told him that we would keep that in mind.
--- NOTE | 2020-08-18 22:17 | PC.NURSE ---
Visiting with boyfriend
--- NOTE | 2020-08-19 07:34 | PC.NURSE ---
pt is still sleeping in same position on tummy
--- NOTE | 2020-08-19 07:47 | PC.NURSE ---
pt is still sleeping in same position on tummy
--- NOTE | 2020-08-19 08:01 | PC.NURSE ---
pt laying down on left side
[2020-08-19 08:15] VITALS: BP 101/58; PULSE 84; RESP 19; TEMP 36.8
--- NOTE | 2020-08-19 08:24 | PC.NURSE ---
pt still laying down on left side. I asked if I could take a set of vital no answer,but did put her arm out for vital.
--- NOTE | 2020-08-19 08:45 | PC.NURSE ---
pt laying down on left side
--- NOTE | 2020-08-19 09:00 | PC.NURSE ---
pt laying down on left side
--- NOTE | 2020-08-19 09:17 | PC.NURSE ---
pt laying down on left side
--- NOTE | 2020-08-19 09:30 | PC.NURSE ---
pt laying down on right side
--- NOTE | 2020-08-19 09:47 | PC.NURSE ---
pt laying down on right side
--- NOTE | 2020-08-19 10:02 | PC.NURSE ---
pt laying down on left side . pt boyfriend arrived at 10:00am
--- NOTE | 2020-08-19 10:20 | PC.NURSE ---
pt sitting up and drinking water. seemed interested in food. pt said had a head ache and normally takes Tylenol or alive . Pt said feels exhausted.
--- NOTE | 2020-08-19 10:45 | PC.NURSE ---
pt laying down right side
--- NOTE | 2020-08-19 11:00 | PC.NURSE ---
pt laying on right side
--- NOTE | 2020-08-19 11:04 | CM.DPNOTE ---
Faxed referral packet per Janet to Behavioral Centers: [facility]; [facility]; [facility]; [facility], [facility] on 08/19/20. Received fax confirmations on all facilities. Clarissa Matson CM Asst.
--- NOTE | 2020-08-19 11:05 | PC.NURSE ---
Patient cooperative to stay in department, per Dr. Kaur, open door seclusion restraint is discontinued at this time. Will reevaluate for further need.
--- NOTE | 2020-08-19 11:19 | PC.NURSE ---
pt sleeping on right side
[2020-08-19 11:30] VITALS: BP 96/58; PULSE 83; RESP 18
--- NOTE | 2020-08-19 12:01 | PC.NURSE ---
patient with social work
[2020-08-19] MEDS: cephALEXin 250 MG CAPSULE 500 MG PO (12:11)
[2020-08-19] MEDS: ACETAMINOPHEN 325 MG TABLET 975 MG PO (12:14)
[2020-08-19 12:25] VITALS: BMI 16.3
--- NOTE | 2020-08-19 13:31 | PC.NURSE ---
pt laying down on right side
--- NOTE | 2020-08-19 14:00 | PC.NURSE ---
pt sleeping on left side
--- NOTE | 2020-08-19 14:15 | PC.NURSE ---
pt is sleeping on right side
--- NOTE | 2020-08-19 14:30 | PC.NURSE ---
pt sleeping on right side
--- NOTE | 2020-08-19 14:46 | PC.NURSE ---
pt sleeping on right side
--- NOTE | 2020-08-19 14:52 | CM.SWNOTE ---
DISTANCE LEARNING PROGRAM COORDINATOR Note: Reviewed record. Received call from ED staff this AM re: placement for this 20yr old female that was brought into ED by significant other/Jacoby with psychiatric symptoms. DISTANCE LEARNING PROGRAM COORDINATOR evaluation completed on 08-18-20. During initial contact patient provided minimal information. Patient answered questions with yes/no answers. Patient unable to fully assess during initial contact. Unclear of reason for mental status. Significant other reports to ED staff that patient has untreated schizophrenia/bipolar. Patient underwent UDS today and it was positive for meth. DISTANCE LEARNING PROGRAM COORDINATOR requested that ED staff contact DCR when patient becomes medically stable if cognition does not improve. Received notification this AM that DCR was dispatched last evening. It was determined patient will be a walk away meaning no inpatient involuntary beds available. DISTANCE LEARNING PROGRAM COORDINATOR spoke with Tyrese this AM he reports that DCR paperwork completed but this DISTANCE LEARNING PROGRAM COORDINATOR unable to find? Requested that Tyrese resend for [facility] records. Tyrese requesting that DISTANCE LEARNING PROGRAM COORDINATOR attempt to obtain inpatient involuntary bed for this patient. Tyrese report that they cannot detain this patient until bed found. DISTANCE LEARNING PROGRAM COORDINATOR placed call to [facility] and [facility], clinical faxed to both facilities for review. [facility] reports that they do have bed but need additional information from DCR. Therefore, requested assistance from JAVI/Tyrese. This DISTANCE LEARNING PROGRAM COORDINATOR unable to answer questions related to this detainment. Tyrese in agreement to reach out to both [facility] and [facility]. DISTANCE LEARNING PROGRAM COORDINATOR and DISTANCE LEARNING PROGRAM COORDINATOR international project engineer met with patient and patient's significant other (Jacoby) at bedside explained role. Patient alert this AM, orientation remains unpredictable. Nursing reports that patient attempted to leave the ED early this AM. Patient required short time restraints. RN reports patient currently cooperative and not requiring restraints. Patient reports that she does not remember what happened to her in ED yesterday or this AM. Patient's mood liable and disorganized. Patient with very soft speech with agitation. Patient appears to have very slow motor skills and impaired insight. DISTANCE LEARNING PROGRAM COORDINATOR and ED provider continue to recommend inpatient psychiatric placement due to the above. JAVI/Tyrese notified and note faxed to him per his request. [facility] report that they do have beds. P: DCR and DISTANCE LEARNING PROGRAM COORDINATOR attempting inpatient psychiatric placement. RAVI Liang
[2020-08-19] MEDS: LORazepam 0.5 MG TABLET 1 MG PO (15:04)
--- NOTE | 2020-08-19 15:15 | PC.NURSE ---
late entry-assisted Tyrese DCR in video conference per Tyrese DCR instructions to deliver legal paperwork to patient. Paperwork placed in patient belonging bag to be sent with patient.
== END 2020-08-19 17:05 ==
PROVIDERS: Emergency Medicine; Emergency Provider Emergency Medicine
DX: N39.0 Urinary tract infection, site not specified (principal); R45.851 Suicidal ideations
CPT/HCPCS: 36415; 80053; 80178; 80305; 80320; 80329; 81003; 81015; 84443; 84703; 85025; 87077; 87086; 87186; 87635; 93005; 99285; C9803; G0480

== ENCOUNTER 2022-07-21 13:45 | Outpatient (RCR) | payer OTHER, MEDICAID, SELFPAY ==
--- NOTE | 2022-07-03 14:37 | PT.OIE ---
Current Diagnoses Cervicalgia (07/03/22) Dorsalgia, unspecified (07/03/22) Other abnormalities of gait and mobility (07/03/22) Visit Care Team Role Provider Type SERA Hoyt Attending Provider Non-Staff Family Provider Primary Care Provider Referring Provider Specialty: Medical Address: [address] [place] [address], [phone] Email: Physical Therapy Initial Evaluation PT-OP-A Visit Information Start: 07/03/22 09:01 Freq: Status: Active Protocol: Document 07/03/22 09:03 TH (Rec: 07/03/22 [id number]) Out-Patient Physical Therapy Visit Information Visit Information Visit Type Initial Evaluation Visit Start Time 09:00 Visit Stop Time 10:00 Total Visit Minutes 60 Visit Number 1 Number of MAINTENANCE PLANNING CLERK Visits 0 Precautions Precautions history of hip dislocations , Screen for ESTIM PT-OP-B Current Condition Start: 07/03/22 09:01 Freq: Status: Active Protocol: Document 07/03/22 09:03 TH (Rec: 07/03/22 [id number]) Current Condition History of Current Condition Current Complaints Lower back pain History of Current Condition Pt reports lower back pain started about 2 yeras ago, most noticably with bending, twisting and lifting. Pt sits/ stands at the desk most of the day. Pain is shooting/ sharp in central lumbar spine. Pain is better with standing rather than sitting. Pt feels that she has been having balance issues lately and is not sure if it is related to knee/ankle or spine. Prior Treatments and Tests bilateral knee hyperextension, increased APT, hypomobile thoracic spine ( flexion), right LE functionally shorter than left , right hip ant rotated, increased IR bilateral hips, bilateral hamstring tightness. Treatment Goals Patient/Caregiver Goals Pt would like to be able to work without having back pain Prior Functional Status Baseline Function- ADL's Independent Current Functional Impairments (Reported) Functional Limitations- ADL's Pt has difficulty bending, lifting and twisting PT-OP-K Range of Motion Start: 07/03/22 09:01 Freq: Status: Active Protocol: Document 07/03/22 09:03 TH (Rec: 07/03/22 [id number]) Lumbar Spine Range of Motion Lumbar Spine Active Testing Position Standing Flexion 30 Extension 20 Rotation Left 20 Rotation Right 30 Comments hypomobile thoracic spine ( flexion), right LE functionally shorter than left , right hip ant rotated, increased IR bilateral hips. ( suspect retroversion of femoral head) PT-OP-Q Treatments Start: 07/03/22 09:01 Freq: Status: Active Protocol: Document 07/03/22 09:03 TH (Rec: 07/03/22 10:31 [id number]) Therapeutic Exercises Other Exercises Medbridge Comments Please see assessment for HEP details Manual Therapy Treatment Manual Techniques 1 Comments Bilateral iliopsoas releases Long axis traction RLE ( gentle) PT-OP-T Assessment and Plan Start: 07/03/22 09:01 Freq: Status: Active Protocol: Document 07/03/22 09:03 TH (Rec: 07/03/22 10:31 [id number]) Physical Therapy Assessment Goals Three Impairment Difficult to lift laundry basket/heavy items. Short Term Goal (STG) Pt will be able to lift and carry laundry basket/heavy items with good mechanics and pain <=3/10. STG Duration 4 weeks D[employer]ified [employer] I Farmworker Goal (LTG) Pt will be able to lift and carry laundry basket/heavy items with good mechanics and pain minimal to no pain. LTG Duration 8 weeks Two Impairment Unable to sit for prolonged periods of time. Short Term Goal (STG) Pt will be able to sit for >= 30 min with pain <=3/10. STG Duration 4 weeks Shelter Goal (LTG) Pt will be able to sit for 45 min with minimal to nop lower back pain. LTG Duration 8 weeks One Impairment Lumbar flexion limited Short Term Goal (STG) Lumbar flexion will improve to WNL STG Duration 4 weeks [employer] I Farmworker Goal (LTG) Pt will be able to reach down to touch toes without lower back pain. LTG Duration 8 weeks Assessment Summary Assessment Pt presents with muscle imbalance of core and hip muscles leading to increased strain on lumbar paraspinals. Pt also c/o shoulder/neck pain. Spoke to pt about addressing neck/shoulder issues with new evaluation in order to make progress with one area at a time. Pt will benefit from further PT to improve core/hip strength/ stability. Physical Therapy Plan Frequency and Duration Frequency of Treatment 1-2x/wk Duration of treatment (weeks) 10 Plan of Care Start Date 07/03/22 Plan of Care End Date 09/11/22 Therapeutic Interventions Therapeutic Interventions Home Exercise Program,Joint Mobilizations,Manual Therapy, Therapeutic Activities, Therapeutic Exercises Modalities Cold Pack/Ice Massage,Hot Packs,Ultrasound Next Visit Focus/Plan Next Visit Plan Access Code: [email or web address] URL: [email or web address] Date: 07/03/2022 Prepared by: Huma Damon Exercises Hip Flexor Stretch at Edge of Bed - 1 x daily - 7 x weekly - 1 sets - 3 reps - 30 sec hold Cat to Child's Pose with Posterior Pelvic Tilt - 1 x daily - 7 x weekly - 1 sets - 3 reps - 30 sec hold Hooklying Isometric Clamshell - 1 x daily - 7 x weekly - 2-3 sets - 10 reps Supine Bridge with Gluteal Set and Spinal Articulation - 1 x daily - 7 x weekly - 2 sets - 10 reps
--- NOTE | 2022-07-03 14:39 | PT.OPPOC ---
Physical, Occupational & Speech Therapy At [facility] Current Diagnoses Cervicalgia (07/03/22) Dorsalgia, unspecified (07/03/22) Other abnormalities of gait and mobility (07/03/22) Visit Care Team Role Provider Type SERA Hoyt Attending Provider Non-Staff Family Provider Primary Care Provider Referring Provider Specialty: Medical Address: [address] [place] [address], [phone] Email: Plan Of Care PT-OP-T Assessment and Plan Start: 07/03/22 09:01 Freq: Status: Active Protocol: Document 07/03/22 09:03 TH (Rec: 07/03/22 10:31 TH [id number]) Physical Therapy Assessment Goals Three Impairment Difficult to lift laundry basket/heavy items. Short Term Goal (STG) Pt will be able to lift and carry laundry basket/heavy items with good mechanics and pain <=3/10. STG Duration 4 weeks [facility] Goal (LTG) Pt will be able to lift and carry laundry basket/heavy items with good mechanics and pain minimal to no pain. LTG Duration 8 weeks Two Impairment Unable to sit for prolonged periods of time. Short Term Goal (STG) Pt will be able to sit for >= 30 min with pain <=3/10. STG Duration 4 weeks [facility] Goal (LTG) Pt will be able to sit for 45 min with minimal to nop lower back pain. LTG Duration 8 weeks One Impairment Lumbar flexion limited Short Term Goal (STG) Lumbar flexion will improve to WNL STG Duration 4 weeks Maint Mechanic Goal (LTG) Pt will be able to reach down to touch toes without lower back pain. LTG Duration 8 weeks Assessment Summary Assessment Pt presents with muscle imbalance of core and hip muscles leading to increased strain on lumbar paraspinals. Pt also c/o shoulder/neck pain. Spoke to pt about addressing neck/shoulder issues with new evaluation in order to make progress with one area at a time. Pt will benefit from further PT to improve core/hip strength/ stability. Physical Therapy Plan Frequency and Duration Frequency of Treatment 1-2x/wk Duration of treatment (weeks) 10 Plan of Care Start Date 07/03/22 Plan of Care End Date 09/11/22 Therapeutic Interventions Therapeutic Interventions Home Exercise Program,Joint Mobilizations,Manual Therapy, Therapeutic Activities, Therapeutic Exercises Modalities Cold Pack/Ice Massage,Hot Packs,Ultrasound Next Visit Focus/Plan Next Visit Plan Access Code: [email or web address] URL: [email or web address] Date: 07/03/2022 Prepared by: Huma Damon Exercises Hip Flexor Stretch at Edge of Bed - 1 x daily - 7 x weekly - 1 sets - 3 reps - 30 sec hold Cat to Child's Pose with Posterior Pelvic Tilt - 1 x daily - 7 x weekly - 1 sets - 3 reps - 30 sec hold Hooklying Isometric Clamshell - 1 x daily - 7 x weekly - 2-3 sets - 10 reps Supine Bridge with Gluteal Set and Spinal Articulation - 1 x daily - 7 x weekly - 2 sets - 10 reps Plan of Care Dates Plan of Care Start Date 07/03/22 Plan of Care End Date 09/11/22 Electronically Signed by: Huma Damon, PT 07/03/22 0438 If you are in agreement with this Plan of Care, please return a signed and dated copy. I have reviewed this Plan of Care and certify that the skilled therapy services above are required to meet the patient?s needs. Physician Signature Date Printed Name and Credentials Clinical Instructor Signature Printed Name and Credentials
--- NOTE | 2022-07-14 16:38 | PT.OTN ---
Current Diagnoses Cervicalgia (07/14/22) Dorsalgia, unspecified (07/14/22) Other abnormalities of gait and mobility (07/14/22) Physical Therapy Treatment Note PT-OP-A Visit Information Start: 07/03/22 09:01 Freq: Status: Active Protocol: Document 07/14/22 16:32 TH (Rec: 07/14/22 16:38 TH [id number]) Out-Patient Physical Therapy Visit Information Visit Information Visit Type Treatment Note Visit Start Time 13:50 Visit Stop Time 14:30 Total Visit Minutes 40 Visit Number 2 Number of WOOL WASHER FEEDER Visits 0 Precautions Precautions No ESTIM hx of seizures PT-OP-B Current Condition Start: 07/03/22 09:01 Freq: Status: Active Protocol: Document 07/03/22 09:03 TH (Rec: 07/03/22 10:31 TH [id number]) Current Condition History of Current Condition Current Complaints Lower back pain History of Current Condition Pt reports lower back pain started about 2 yeras ago, most noticably with bending, twisting and lifting. Pt sits/ stands at the desk most of the day. Pain is shooting/ sharp in central lumbar spine. Pain is better with standing rather than sitting. Pt feels that she has been having balance issues lately and is not sure if it is related to knee/ankle or spine. Prior Treatments and Tests bilateral knee hyperextension, increased APT, hypomobile thoracic spine ( flexion), right LE functionally shorter than left , right hip ant rotated, increased IR bilateral hips, bilateral hamstring tightness. Treatment Goals Patient/Caregiver Goals Pt would like to be able to work without having back pain Prior Functional Status Baseline Function- ADL's Independent Current Functional Impairments (Reported) Functional Limitations- ADL's Pt has difficulty bending, lifting and twisting PT-OP-C Subjective Start: 07/03/22 09:01 Freq: Status: Active Protocol: Document 07/14/22 16:32 TH (Rec: 07/14/22 16:38 TH [id number]) OP-PT Subjective Patient Comments Patient Comments Pt states she had some relief post last rx. PT-OP-K Range of Motion Start: 07/03/22 09:01 Freq: Status: Active Protocol: Document 07/03/22 09:03 TH (Rec: 07/03/22 10:31 TH [id number]) Lumbar Spine Range of Motion Lumbar Spine Active Testing Position Standing Flexion 30 Extension 20 Rotation Left 20 Rotation Right 30 Comments hypomobile thoracic spine ( flexion), right LE functionally shorter than left , right hip ant rotated, increased IR bilateral hips. ( suspect retroversion of femoral head) PT-OP-Q Treatments Start: 07/03/22 09:01 Freq: Status: Active Protocol: Document 07/14/22 15:50 TH (Rec: 07/14/22 16:31 TH [id number]) Therapeutic Exercises Other Exercises bridging Comments 1 x 10 hip hike in supine Comments 1 x 10 ( 5 bilaterally) posterior pelvic tilt Comments 2 x 10 3-5 sec holds Manual Therapy Treatment Manual Techniques passive lumbar rotation in prone Comments bilaterally iliopsoas release right Comments right side hip flexor release Comments Hip flexor stretch off EOB with massage roller to quads PT-OP-T Assessment and Plan Start: 07/03/22 09:01 Freq: Status: Active Protocol: Document 07/14/22 16:32 TH (Rec: 07/14/22 16:38 TH [id number]) Physical Therapy Assessment Goals Three Impairment Difficult to lift laundry basket/heavy items. Short Term Goal (STG) Pt will be able to lift and carry laundry basket/heavy items with good mechanics and pain <=3/10. STG Duration 4 weeks [facility] Goal (LTG) Pt will be able to lift and carry laundry basket/heavy items with good mechanics and pain minimal to no pain. LTG Duration 8 weeks Two Impairment Unable to sit for prolonged periods of time. Short Term Goal (STG) Pt will be able to sit for >= 30 min with pain <=3/10. STG Duration 4 weeks [facility] Goal (LTG) Pt will be able to sit for 45 min with minimal to nop lower back pain. LTG Duration 8 weeks One Impairment Lumbar flexion limited Short Term Goal (STG) Lumbar flexion will improve to WNL STG Duration 4 weeks [facility] Goal (LTG) Pt will be able to reach down to touch toes without lower back pain. LTG Duration 8 weeks Physical Therapy Plan Frequency and Duration Frequency of Treatment 1-2x/wk Duration of treatment (weeks) 10 Plan of Care Start Date 07/03/22 Plan of Care End Date 09/11/22 Therapeutic Interventions Therapeutic Interventions Home Exercise Program,Joint Mobilizations,Manual Therapy, Neuromuscular Re-education, Self-Care/Home Management,Soft Tissue Mobilization, Therapeutic Activities, Therapeutic Exercises Modalities Cold Pack/Ice Massage,Hot Packs,Ultrasound Next Visit Focus/Plan Next Visit Plan Access Code: [email or web address] URL: [email or web address] Date: 07/03/2022 Prepared by: Huma Damon Exercises Hip Flexor Stretch at Edge of Bed - 1 x daily - 7 x weekly - 1 sets - 3 reps - 30 sec hold Cat to Child's Pose with Posterior Pelvic Tilt - 1 x daily - 7 x weekly - 1 sets - 3 reps - 30 sec hold Hooklying Isometric Clamshell - 1 x daily - 7 x weekly - 2-3 sets - 10 reps Supine Bridge with Gluteal Set and Spinal Articulation - 1 x daily - 7 x weekly - 2 sets - 10 reps
--- NOTE | 2022-07-17 14:56 | PT.OTN ---
Current Diagnoses Cervicalgia (07/17/22) Dorsalgia, unspecified (07/17/22) Other abnormalities of gait and mobility (07/17/22) Physical Therapy Treatment Note PT-OP-A Visit Information Start: 07/03/22 09:01 Freq: Status: Active Protocol: Document 07/17/22 14:30 TH (Rec: 07/17/22 14:56 TH [id number]) Out-Patient Physical Therapy Visit Information Visit Information Visit Type Treatment Note Visit Start Time 01:45 Visit Stop Time 02:00 Total Visit Minutes 45 Visit Number 3 Number of TRAVELING FREIGHT AGENT Visits 0 PT-OP-B Current Condition Start: 07/03/22 09:01 Freq: Status: Active Protocol: Document 07/03/22 09:03 TH (Rec: 07/03/22 10:31 TH [id number]) Current Condition History of Current Condition Current Complaints Lower back pain History of Current Condition Pt reports lower back pain started about 2 yeras ago, most noticably with bending, twisting and lifting. Pt sits/ stands at the desk most of the day. Pain is shooting/ sharp in central lumbar spine. Pain is better with standing rather than sitting. Pt feels that she has been having balance issues lately and is not sure if it is related to knee/ankle or spine. Prior Treatments and Tests bilateral knee hyperextension, increased APT, hypomobile thoracic spine ( flexion), right LE functionally shorter than left , right hip ant rotated, increased IR bilateral hips, bilateral hamstring tightness. Treatment Goals Patient/Caregiver Goals Pt would like to be able to work without having back pain Prior Functional Status Baseline Function- ADL's Independent Current Functional Impairments (Reported) Functional Limitations- ADL's Pt has difficulty bending, lifting and twisting PT-OP-C Subjective Start: 07/03/22 09:01 Freq: Status: Active Protocol: Document 07/17/22 14:30 TH (Rec: 07/17/22 14:56 TH [id number]) OP-PT Subjective Patient Comments Patient Comments Pt reports she has been feeling better. Patient Reported Progress Improving PT-OP-K Range of Motion Start: 07/03/22 09:01 Freq: Status: Active Protocol: Document 07/03/22 09:03 TH (Rec: 07/03/22 10:31 TH [id number]) Lumbar Spine Range of Motion Lumbar Spine Active Testing Position Standing Flexion 30 Extension 20 Rotation Left 20 Rotation Right 30 Comments hypomobile thoracic spine ( flexion), right LE functionally shorter than left , right hip ant rotated, increased IR bilateral hips. ( suspect retroversion of femoral head) PT-OP-Q Treatments Start: 07/03/22 09:01 Freq: Status: Active Protocol: Document 07/17/22 14:30 TH (Rec: 07/17/22 14:56 TH [id number]) Therapeutic Exercises Other Exercises monster walk Comments 4 x 10 feet pink band bridging Comments 1 x 10 hip hike in supine Comments 1 x 10 posterior pelvic tilt Comments x 10 Manual Therapy Treatment Manual Techniques long axis traction Comments right LE iliopsoas release right Comments right hip flexor release Comments with massage roller to quads Self-Care/Home Management Treatment Education Patient Education Home Exercise Program Other Education Access Code: [email or web address] URL: [email or web address] Date: 07/17/2022 Prepared by: Huma Damon Exercises Hip Flexor Stretch at Edge of Bed - 1 x daily - 7 x weekly - 1 sets - 3 reps - 30 sec hold Cat to Child's Pose with Posterior Pelvic Tilt - 1 x daily - 7 x weekly - 1 sets - 3 reps - 30 sec hold Hooklying Isometric Clamshell - 1 x daily - 7 x weekly - 2-3 sets - 10 reps Supine Bridge with Gluteal Set and Spinal Articulation - 1 x daily - 7 x weekly - 2 sets - 10 reps Supine Hip Hike - 1 x daily - 7 x weekly - 1 sets - 10 reps - 5 sec hold Supine March with Posterior Pelvic Tilt - 1 x daily - 7 x weekly - 1 sets - 10 reps - 5 sec hold Forward Monster Walks - 1 x daily - 7 x weekly PT-OP-T Assessment and Plan Start: 07/03/22 09:01 Freq: Status: Active Protocol: Document 07/17/22 14:30 TH (Rec: 07/17/22 14:56 TH [id number]) Physical Therapy Assessment Goals Three Impairment Difficult to lift laundry basket/heavy items. Short Term Goal (STG) Pt will be able to lift and carry laundry basket/heavy items with good mechanics and pain <=3/10. STG Duration 4 weeks Bulldogger Goal (LTG) Pt will be able to lift and carry laundry basket/heavy items with good mechanics and pain minimal to no pain. LTG Duration 8 weeks Two Impairment Unable to sit for prolonged periods of time. Short Term Goal (STG) Pt will be able to sit for >= 30 min with pain <=3/10. STG Duration 4 weeks Assisted Goal (LTG) Pt will be able to sit for 45 min with minimal to nop lower back pain. LTG Duration 8 weeks One Impairment Lumbar flexion limited Short Term Goal (STG) Lumbar flexion will improve to WNL STG Duration 4 weeks Bulldogger Goal (LTG) Pt will be able to reach down to touch toes without lower back pain. LTG Duration 8 weeks Physical Therapy Plan Frequency and Duration Frequency of Treatment 1-2x/wk Duration of treatment (weeks) 10 Plan of Care Start Date 07/03/22 Plan of Care End Date 09/11/22 Therapeutic Interventions Therapeutic Interventions Home Exercise Program,Joint Mobilizations,Manual Therapy, Neuromuscular Re-education, Self-Care/Home Management,Soft Tissue Mobilization, Therapeutic Activities, Therapeutic Exercises Modalities Cold Pack/Ice Massage,Hot Packs,Ultrasound Next Visit Focus/Plan Next Visit Plan Access Code: [email or web address] URL: [email or web address] Date: 07/03/2022 Prepared by: Huma Damon Exercises Hip Flexor Stretch at Edge of Bed - 1 x daily - 7 x weekly - 1 sets - 3 reps - 30 sec hold Cat to Child's Pose with Posterior Pelvic Tilt - 1 x daily - 7 x weekly - 1 sets - 3 reps - 30 sec hold Hooklying Isometric Clamshell - 1 x daily - 7 x weekly - 2-3 sets - 10 reps Supine Bridge with Gluteal Set and Spinal Articulation - 1 x daily - 7 x weekly - 2 sets - 10 reps
--- NOTE | 2022-07-21 16:18 | PT.OTN ---
Current Diagnoses Cervicalgia (07/21/22) Dorsalgia, unspecified (07/21/22) Other abnormalities of gait and mobility (07/21/22) Physical Therapy Treatment Note PT-OP-A Visit Information Start: 07/03/22 09:01 Freq: Status: Active Protocol: Document 07/21/22 13:19 TH (Rec: 07/21/22 16:18 TH [id number]) Out-Patient Physical Therapy Visit Information Visit Information Visit Type Treatment Note Visit Start Time 13:45 Visit Stop Time 14:30 Total Visit Minutes 45 Visit Number 4 Number of ANTENNA DESIGN ENGINEER Visits 0 PT-OP-B Current Condition Start: 07/03/22 09:01 Freq: Status: Active Protocol: Document 07/03/22 09:03 TH (Rec: 07/03/22 10:31 TH [id number]) Current Condition History of Current Condition Current Complaints Lower back pain History of Current Condition Pt reports lower back pain started about 2 yeras ago, most noticably with bending, twisting and lifting. Pt sits/ stands at the desk most of the day. Pain is shooting/ sharp in central lumbar spine. Pain is better with standing rather than sitting. Pt feels that she has been having balance issues lately and is not sure if it is related to knee/ankle or spine. Prior Treatments and Tests bilateral knee hyperextension, increased APT, hypomobile thoracic spine ( flexion), right LE functionally shorter than left , right hip ant rotated, increased IR bilateral hips, bilateral hamstring tightness. Treatment Goals Patient/Caregiver Goals Pt would like to be able to work without having back pain Prior Functional Status Baseline Function- ADL's Independent Current Functional Impairments (Reported) Functional Limitations- ADL's Pt has difficulty bending, lifting and twisting PT-OP-C Subjective Start: 07/03/22 09:01 Freq: Status: Active Protocol: Document 07/21/22 13:19 TH (Rec: 07/21/22 16:18 TH [id number]) OP-PT Subjective Patient Comments Patient Comments Pt reports symptoms are minimal now and she is starting to think about getting a job now that she has been better able to tolerate standing/sitting. Patient Reported Progress Improving PT-OP-K Range of Motion Start: 07/03/22 09:01 Freq: Status: Active Protocol: Document 07/03/22 09:03 TH (Rec: 07/03/22 10:31 TH [id number]) Lumbar Spine Range of Motion Lumbar Spine Active Testing Position Standing Flexion 30 Extension 20 Rotation Left 20 Rotation Right 30 Comments hypomobile thoracic spine ( flexion), right LE functionally shorter than left , right hip ant rotated, increased IR bilateral hips. ( suspect retroversion of femoral head) PT-OP-Q Treatments Start: 07/03/22 09:01 Freq: Status: Active Protocol: Document 07/21/22 13:19 TH (Rec: 07/21/22 16:18 TH [id number]) Therapeutic Exercises Other Exercises T spine imprinting Comments 1 x 10 hold 5 sec anatomical posture Comments 1 x 5 hold 10 sec with rib tuck side stepping Comments 4 x 10 feet monster walk Comments 4 x 10 feet bridging Comments 1 x 10 hip hike in supine Comments 1 x 10 posterior pelvic tilt Comments 1 x 10 Self-Care/Home Management Treatment Education Patient Education Home Exercise Program Other Education Access Code: [email or web address] URL: [email or web address] Date: 07/21/2022 Prepared by: Huma Damon Exercises Hip Flexor Stretch at Edge of Bed - 1 x daily - 7 x weekly - 1 sets - 3 reps - 30 sec hold Cat to Child's Pose with Posterior Pelvic Tilt - 1 x daily - 7 x weekly - 1 sets - 3 reps - 30 sec hold Hooklying Isometric Clamshell - 1 x daily - 7 x weekly - 2-3 sets - 10 reps Supine Bridge with Gluteal Set and Spinal Articulation - 1 x daily - 7 x weekly - 2 sets - 10 reps Supine Hip Hike - 1 x daily - 7 x weekly - 1 sets - 10 reps - 5 sec hold Supine March with Posterior Pelvic Tilt - 1 x daily - 7 x weekly - 1 sets - 10 reps - 5 sec hold Forward Monster Walks - 1 x daily - 7 x weekly Side Stepping with Resistance at Ankles - 1 x daily - 7 x weekly Standing Anatomical Position with Scapular Retraction and Depression at Wall - 1 x daily - 7 x weekly - 1 sets - 5-10 reps - 10 sec hold PT-OP-T Assessment and Plan Start: 07/03/22 09:01 Freq: Status: Active Protocol: Document 07/21/22 13:19 TH (Rec: 07/21/22 16:18 TH [id number]) Physical Therapy Assessment Goals Three Impairment Difficult to lift laundry basket/heavy items. Short Term Goal (STG) Pt will be able to lift and carry laundry basket/heavy items with good mechanics and pain <=3/10. STG Duration 4 weeks Sales Promotion Manager Goal (LTG) Pt will be able to lift and carry laundry basket/heavy items with good mechanics and pain minimal to no pain. LTG Duration 8 weeks Two Impairment Unable to sit for prolonged periods of time. Short Term Goal (STG) Pt will be able to sit for >= 30 min with pain <=3/10. STG Duration 4 weeks Sales Promotion Manager Goal (LTG) Pt will be able to sit for 45 min with minimal to nop lower back pain. LTG Duration 8 weeks One Impairment Lumbar flexion limited Short Term Goal (STG) Lumbar flexion will improve to WNL STG Duration 4 weeks Penitentiary Goal (LTG) Pt will be able to reach down to touch toes without lower back pain. LTG Duration 8 weeks Assessment Summary Assessment Pt making good rpgress as demonstrated by decreased pain and improved postural alignment. Will likely dc next visit. Physical Therapy Plan Frequency and Duration Frequency of Treatment 1-2x/wk Duration of treatment (weeks) 10 Plan of Care Start Date 07/03/22 Plan of Care End Date 09/11/22 Therapeutic Interventions Therapeutic Interventions Home Exercise Program,Joint Mobilizations,Manual Therapy, Neuromuscular Re-education, Self-Care/Home Management,Soft Tissue Mobilization, Therapeutic Activities, Therapeutic Exercises Modalities Cold Pack/Ice Massage,Hot Packs,Ultrasound Next Visit Focus/Plan Next Visit Plan Review HEP Work on postural alignment.
--- NOTE | 2022-10-07 16:29 | PT.OPDS ---
Current Diagnoses Cervicalgia (07/21/22) Dorsalgia, unspecified (07/21/22) Other abnormalities of gait and mobility (07/21/22) Visit Care Team Role Provider Type SERA Hoyt Attending Provider Non-Staff Family Provider Primary Care Provider Referring Provider Specialty: Medical Address: [address] [place] [address], [phone] Email: Visit Number Visit Number 4 Discharge Summary PT-OP-B Current Condition Start: 07/03/22 09:01 Freq: Status: Active Protocol: Document 07/03/22 09:03 TH (Rec: 07/03/22 10:31 TH [id number]) Current Condition History of Current Condition Current Complaints Lower back pain History of Current Condition Pt reports lower back pain started about 2 yeras ago, most noticably with bending, twisting and lifting. Pt sits/ stands at the desk most of the day. Pain is shooting/ sharp in central lumbar spine. Pain is better with standing rather than sitting. Pt feels that she has been having balance issues lately and is not sure if it is related to knee/ankle or spine. Prior Treatments and Tests bilateral knee hyperextension, increased APT, hypomobile thoracic spine ( flexion), right LE functionally shorter than left , right hip ant rotated, increased IR bilateral hips, bilateral hamstring tightness. Treatment Goals Patient/Caregiver Goals Pt would like to be able to work without having back pain Prior Functional Status Baseline Function- ADL's Independent Current Functional Impairments (Reported) Functional Limitations- ADL's Pt has difficulty bending, lifting and twisting PT-OP-C Subjective Start: 07/03/22 09:01 Freq: Status: Active Protocol: Document 07/21/22 13:19 TH (Rec: 07/21/22 16:18 TH [id number]) OP-PT Subjective Patient Comments Patient Comments Pt reports symptoms are minimal now and she is starting to think about getting a job now that she has been better able to tolerate standing/sitting. Patient Reported Progress Improving PT-OP-K Range of Motion Start: 07/03/22 09:01 Freq: Status: Active Protocol: Document 07/03/22 09:03 TH (Rec: 07/03/22 10:31 TH [id number]) Lumbar Spine Range of Motion Lumbar Spine Active Testing Position Standing Flexion 30 Extension 20 Rotation Left 20 Rotation Right 30 Comments hypomobile thoracic spine ( flexion), right LE functionally shorter than left , right hip ant rotated, increased IR bilateral hips. ( suspect retroversion of femoral head) PT-OP-T Assessment and Plan Start: 07/03/22 09:01 Freq: Status: Active Protocol: Document 10/07/22 16:28 [facility] (Rec: 10/07/22 16:29 [facility] [id number]) Physical Therapy Assessment Assessment Summary Assessment pt no showed 2 last appts so at this time DC pt d/t noncomplianec and no longer attending PT. She also no showed another appt earlier in care. Pt attended only 4 visits and has not been seen since 07/21/22. DC at this time . Physical Therapy Plan Discharge Physical Therapy Discharge Reasons No Longer Attending PT
== END 2022-10-14 09:00 | disposition home or self-care (01) ==
LOC: PHYS 13:45
PROVIDERS: Absent Provider Nurse Practitioner; Family Provider Nurse Practitioner; PCP Nurse Practitioner; Referring Provider Nurse Practitioner; Visit Provider Nurse Practitioner
DX: M54.9 Dorsalgia, unspecified (principal); M54.2 Cervicalgia; R26.89 Other abnormalities of gait and mobility
CPT/HCPCS: 97110; 97140; 97161; 97530